=== PATIENT | female | born 1930 | race Caucasian/White ===

== ENCOUNTER 2017-02-18 08:55 | Outpatient (CLI) | payer MEDICARE ==
[2017-02-18 13:42] LABS: BASOPHILS % (AUTO) 0.7 %; EOSINOPHILS # (AUTO) 0.2 10^3/uL (0.0-0.7); EOSINOPHILS % (AUTO) 3.3 %; HGB - HEMOGLOBIN 12.7 g/dL (12.0-16.0); LYMPHOCYTES # (AUTO) 1.4 10^3/uL (1.5-3.5); LYMPHOCYTES % (AUTO) 22.3 %; MEAN CORPUSCULAR HEMOGLOBIN 26.9 pg (27.0-31.0); MEAN CORPUSCULAR HGB CONC 32.5 g/dL (32.0-36.0); MEAN CORPUSCULAR VOLUME 82.6 fL (81.0-99.0); MEAN PLATELET VOLUME 10.3 fL (7.9-10.8); MONOCYTES # (AUTO) 0.5 10^3/uL (0.0-1.0); MONOCYTES % (AUTO) 8.8 %; NEUTROPHILS % (AUTO) 64.9 %; RED BLOOD COUNT 4.73 10^6/uL (4.20-5.40); RED CELL DISTRIBUTION WIDTH 15.9 % (12.0-15.0); UNCORRECTED WHITE BLOOD COUNT 6.1 x10^3/uL; WHITE BLOOD COUNT 6.1 x10^3/uL (4.8-10.8)
[2017-02-18 14:14] LABS: ALBUMIN/GLOBULIN RATIO 1.2 (1.0-2.2); BILIRUBIN,TOTAL 0.4 mg/dL (0.2-1.0); BUN - BLOOD UREA NITROGEN 14 mg/dL (6-20); CALCIUM 8.7 mg/dL (8.5-10.3); CARBON DIOXIDE - CO2 28 mmol/L (21-32); CHLORIDE 104 mmol/L (101-111); CHOL/HDL RATIO 2.2 (<4.4); CHOLESTEROL 152 mg/dL; CREATININE 0.6 mg/dL (0.4-1.0); GFR - MDRD 95 (>89); GLUCOSE 98 mg/dL (70-100); HDL CHOLESTEROL 70 mg/dL; POTASSIUM 3.9 mmol/L (3.5-5.0); SODIUM 137 mmol/L (135-145); TOTAL PROTEIN 6.4 g/dL (6.7-8.2); TRIGLYCERIDES 66 mg/dL; VLDL CHOLESTEROL 13 mg/dL
== END 2017-02-18 08:56 | disposition home or self-care (01) ==
LOC: LAB.WCP 08:55
PROVIDERS: ATTEND Physician Assistant Medical
DX: E78.5 Hyperlipidemia, unspecified (principal); M16.11 Unilateral primary osteoarthritis, right hip
CPT/HCPCS: 36415; 80053; 80061; 85025

== ENCOUNTER 2017-03-22 08:37 | Outpatient (CLI) | payer MEDICARE ==
[2017-03-22 12:49] LABS: ALBUMIN/GLOBULIN RATIO 1.1 (1.0-2.2); BILIRUBIN,TOTAL 0.4 mg/dL (0.2-1.0); CALCIUM 8.8 mg/dL (8.5-10.3); CREATININE 0.7 mg/dL (0.4-1.0); POTASSIUM 3.9 mmol/L (3.5-5.0); TOTAL PROTEIN 6.6 g/dL (6.7-8.2)
== END 2017-03-22 08:38 | disposition home or self-care (01) ==
LOC: LAB.WCP 08:37
PROVIDERS: ATTEND Physician Assistant Medical
DX: R74.8 Abnormal levels of other serum enzymes (principal)
CPT/HCPCS: 36415; 80053

== ENCOUNTER 2018-03-29 14:21 | Outpatient (CLI) | payer MEDICARE, MEDICAID ==
[2018-03-29 19:30] LABS: ALBUMIN 3.1 g/dL (3.2-5.5); ALBUMIN/GLOBULIN RATIO 1.1 (1.0-2.2); ALKALINE PHOSPHATASE 99 IU/L (42-121); ALT ALANINE AMINOTRANSFERASE 16 IU/L (10-60); AST ASPARTATE AMINOTRANSFERASE 19 IU/L (10-42); BILIRUBIN,TOTAL 0.4 mg/dL (0.2-1.0); BUN - BLOOD UREA NITROGEN 13 mg/dL (6-20); CALCIUM 8.5 mg/dL (8.5-10.3); CARBON DIOXIDE - CO2 28 mmol/L (21-32); CHLORIDE 101 mmol/L (101-111); CHOL/HDL RATIO 2.4 (<4.4); CHOLESTEROL 127 mg/dL; CREATININE 0.6 mg/dL (0.4-1.0); GFR - MDRD 94 (>89); GLUCOSE 120 mg/dL (70-100); HDL CHOLESTEROL 54 mg/dL; LDL CHOLESTEROL,CALCULATED 63 mg/dL; LDL/HDL RATIO 1.2 (<4.4); SODIUM 136 mmol/L (135-145); VLDL CHOLESTEROL 10 mg/dL
== END 2018-03-29 14:22 ==
LOC: LAB.WCP 14:21
PROVIDERS: ATTEND Physician Assistant Medical
DX: E78.5 Hyperlipidemia, unspecified (principal)
CPT/HCPCS: 36415; 80053; 80061; 83721

== ENCOUNTER 2019-02-14 14:20 | Outpatient (CLI) | payer MEDICARE, MEDICAID ==
--- NOTE | 2019-02-14 15:51 | XRAY Report ---
Reason: ELBOW JOINT PAIN,RIGHT Procedure Date: 02/14/2019 Accession Number: [id number] / [id number] Procedure: WCP - Elbow 3 View RT CPT Code: FULL RESULT: EXAM: RIGHT ELBOW RADIOGRAPHY EXAM DATE: 02/14/2019 02:39 PM. CLINICAL HISTORY: Elbow joint pain, right. COMPARISON: None. TECHNIQUE: 3 views. FINDINGS: Bones: Normal. No fractures or bone lesions. Joints: Normal. No effusion. No subluxation. Soft Tissues: Normal. No soft tissue swelling. IMPRESSION: Normal elbow radiography. RADIA
== END 2019-02-14 14:21 | disposition home or self-care (01) ==
LOC: DI.WCP 14:20
PROVIDERS: ATTEND Physician Assistant Medical
DX: M25.521 Pain in right elbow (principal)

== ENCOUNTER 2019-02-14 14:21 | Outpatient (CLI) | payer MEDICARE, MEDICAID ==
--- NOTE | 2019-02-14 15:52 | XRAY Report ---
Reason: ANKLE PAIN,RIGHT Procedure Date: 02/14/2019 Accession Number: [id number] / [id number] Procedure: WCP - Ankle 3 View RT CPT Code: FULL RESULT: EXAM: RIGHT ANKLE RADIOGRAPHY. EXAM DATE: 02/14/2019 02:39 PM. CLINICAL HISTORY: Ankle pain, right. COMPARISON: None. TECHNIQUE: 3 views. FINDINGS: Bones: Mild inferior calcaneal spurring. Minimal posterior calcaneal spurring. No fractures or bone lesions. Joints: Normal. No effusion. No subluxations. The ankle mortise is normally aligned. Soft Tissues: Mild amount of vascular calcifications. Soft tissue swelling of the ankle is noted. IMPRESSION: No fracture or dislocation. RADIA
== END 2019-02-14 14:22 | disposition home or self-care (01) ==
LOC: DI.WCP 14:21
PROVIDERS: ATTEND Physician Assistant Medical
DX: M25.571 Pain in right ankle and joints of right foot (principal); M25.521 Pain in right elbow

== ENCOUNTER 2019-10-07 11:39 | Outpatient (CLI) | payer MEDICARE, MEDICAID | END 2019-10-07 11:40 | disposition critical access hospital (66) | LOC: EMS 11:39 | PROVIDERS: ATTEND Surgery | DX: R06.00 Dyspnea, unspecified (principal); R05 Cough; R56.9 Unspecified convulsions | CPT/HCPCS: A0425; A0427 ==

== ENCOUNTER 2019-10-07 11:54 | Inpatient (IN) | payer MEDICARE, MEDICAID ==
[2019-10-07] MEDS ORDERED: AZITHROMYCIN INJ 500 MG in SODIUM CHLORIDE 0.9% 250 ML IV STA (12:42)
[2019-10-07] MEDS ORDERED: cefTRIAXone 2 GM in SODIUM CHLORIDE 0.9% MINIBAG 100 ML IV STA (12:42)
--- NOTE | 2019-10-07 12:43 | ED Physician Documentation ---
PD HPI DYSPNEA - Stated complaint Stated Complaint: COUGH/ FEVER - Chief complaint Chief Complaint: Resp - History obtained from History obtained from: Patient - History of Present Illness Timing - onset: Today (This is an 88-year-old woman presents from assisted living with reported cough and fever and hypoxemia today. Had a temperature of 100.8 and pulse oximetry of 86%. She is confused so most of the history is from the transfer form. Patient has no complaints and does not really know why she is here.) Review of Systems Unable to obtain: Confused PD PAST MEDICAL HISTORY - Past Medical History Past Medical History: Yes Cardiovascular: High cholesterol - Past Surgical History Past Surgical History: No - Present Medications Home Medications: Ambulatory Orders Medication Instructions Recorded Confirmed Aspirin 81 mg PO 10/07/19 Fluticasone/Salmeterol [Advair 1 inh 10/07/19 250-50 Diskus] Lovastatin 40 mg PO 10/07/19 Nitrofurantoin Macrocrystal 100 mg PO BID 10/07/19 10/07/19 [Nitrofurantoin] - Allergies Allergies/Adverse Reactions: Allergies Allergy/AdvReac Type Severity Reaction Status Date / Time No Known Drug Allergies Allergy Verified 10/07/19 12:20 - Social History Does the pt smoke?: No Smoking Status: Never smoker PD ED PE NORMAL - Vitals Vital signs reviewed: Yes - General General: Other (Alert and oriented to person, not place time or events.) - HEENT HEENT: PERRL, EOMI - Neck Neck: Supple, no meningeal sign, No bony TTP - Cardiac Cardiac: RRR, No murmur - Respiratory Respiratory: No respiratory distress, Other (Rhonchorous at both bases, left worse than right) - Abdomen Abdomen: Non tender - Back Back: No CVA TTP, No spinal TTP - Derm Derm: Normal color, Warm and dry - Extremities Extremities: No edema, No calf tenderness / cord - Neuro Neuro: No motor deficit, No sensory deficit Eye Opening: Spontaneous Motor: Obeys Commands Verbal: Confused GCS Score: 14 Results - Vitals Vitals: Vital Signs - 24 hr 10/07/19 10/07/19 12:24 13:11 Temperature 37.4 C 37.4 C Heart Rate 102 H 75 Respiratory 18 24 Rate Blood Pressure 102/59 L 101/56 L O2 Saturation 94 Oxygen O2 Source Room air - Labs Labs: Laboratory Tests 10/07/19 10/07/19 10/07/19 13:00 13:00 13:00 WBC 20.9 H RBC 4.06 L Hgb 8.7 L Hct 29.7 L MCV 73.2 L MCH 21.4 L MCHC 29.3 L RDW 19.7 H Plt Count 240 MPV 10.8 Neut # (Auto) Not Reportable Lymph # (Auto) Not Reportable Alfalfa # (Auto) Not Reportable Eos # (Auto) Not Reportable Baso # (Auto) Not Reportable Absolute Nucleated RBC Not Reportable Total Counted 100 Band Neuts % (Manual) 5 Abnorm Lymph % (Manual) 0 Nucleated RBC % Not Reportable Neutrophils # (Manual) 18.2 H Lymphocytes # (Manual) 0.6 L Monocytes # (Manual) 1.9 H Eosinophils # (Manual) 0.2 Basophils # (Manual) 0.0 Differential Comment MANUAL DIFFERENTIAL WBC Morphology NORMAL APPEARANCE Platelet Estimate NORMAL (130-450,000) Platelet Morphology NORMAL APPEARANCE RBC Morph Micro Appear 1+ ACANTHOCYTES Sodium 134 L Potassium 3.2 L Chloride 99 L Carbon Dioxide 26 Anion Gap 9.0 BUN 14 Creatinine 0.6 Estimated GFR (MDRD) 94 Glucose 121 H Lactic Acid 0.9 Calcium 8.1 L Total Bilirubin 0.6 AST 17 ALT 12 Alkaline Phosphatase 96 Total Protein 6.1 L Albumin 2.9 L Globulin 3.2 Albumin/Globulin Ratio 0.9 L Lipase 24 Influenza A (Rapid) Influenza B (Rapid) 10/07/19 13:33 WBC RBC Hgb Hct MCV MCH MCHC RDW Plt Count MPV Neut # (Auto) Lymph # (Auto) Alfalfa # (Auto) Eos # (Auto) Baso # (Auto) Absolute Nucleated RBC Total Counted Band Neuts % (Manual) Abnorm Lymph % (Manual) Nucleated RBC % Neutrophils # (Manual) Lymphocytes # (Manual) Monocytes # (Manual) Eosinophils # (Manual) Basophils # (Manual) Differential Comment WBC Morphology Platelet Estimate Platelet Morphology RBC Morph Micro Appear Sodium Potassium Chloride Carbon Dioxide Anion Gap BUN Creatinine Estimated GFR (MDRD) Glucose Lactic Acid Calcium Total Bilirubin AST ALT Alkaline Phosphatase Total Protein Albumin Globulin Albumin/Globulin Ratio Lipase Influenza A (Rapid) Negative Influenza B (Rapid) Negative PD MEDICAL DECISION MAKING - ED course ED course: 88-year-old woman presents confused with pneumonia. She has right upper lobe infiltrate. She was administered Rocephin and Zithromax after blood cultures. Has a white count of 20 and is modestly anemic. She does not fit current guidelines for coronavirus testing per CDC and [facility] guidelines. Spoke with Dr. Singleton for admission at 2:04 PM. She did develop some lower blood pressures here of 90/60 or so for which she received 2 L of LR. Lactate was reassuring. Departure - Departure Disposition: [facility] DC/Xfer Clinical Impression: Pneumonia Qualifiers: Pneumonia type: due to unspecified organism Laterality: right Lung location: upper lobe of lung Qualified Code(s): J18.9 - Pneumonia, unspecified organism Condition: Serious
[2019-10-07 13:08] LABS: BASOPHILS % (AUTO) 0.5 %; HGB - HEMOGLOBIN 8.7 g/dL (12.0-16.0); LYMPHOCYTES % (AUTO) 7.1 %; MEAN CORPUSCULAR HEMOGLOBIN 21.4 pg (27.0-31.0); MEAN CORPUSCULAR HGB CONC 29.3 g/dL (32.0-36.0); MEAN CORPUSCULAR VOLUME 73.2 fL (81.0-99.0); MEAN PLATELET VOLUME 10.8 fL (7.9-10.8); MONOCYTES % (AUTO) 5.2 %; NEUTROPHILS % (AUTO) 86.2 %; PLT - PLATELET COUNT 240 10^3/uL (130-450); RED BLOOD COUNT 4.06 10^6/uL (4.20-5.40); RED CELL DISTRIBUTION WIDTH 19.7 % (12.0-15.0); WHITE BLOOD COUNT 20.9 x10^3/uL (4.8-10.8)
[2019-10-07 13:19] LABS: ALBUMIN 2.9 g/dL (3.2-5.5); ALBUMIN/GLOBULIN RATIO 0.9 (1.0-2.2); BILIRUBIN,TOTAL 0.6 mg/dL (0.2-1.0); CALCIUM 8.1 mg/dL (8.5-10.3); CREATININE 0.6 mg/dL (0.4-1.0); TOTAL PROTEIN 6.1 g/dL (6.7-8.2)
[2019-10-07 13:26] LABS: ABNORMAL LYMPHS % (MANUAL) 0 %
--- NOTE | 2019-10-07 13:31 | XRAY Report ---
Reason: cough fever Procedure Date: 10/07/2019 Accession Number: [id number] / [id number] Procedure: XR - Chest 1 View X-Ray CPT Code: 55545 Final Report FULL RESULT: EXAM: CHEST RADIOGRAPHY EXAM DATE: 10/07/2019 12:53 PM. CLINICAL HISTORY: Cough, fever. COMPARISON: None. TECHNIQUE: 1 view. FINDINGS: Lungs/Pleura: Patchy opacity is demonstrated in the right upper lung. Mild diffuse interstitial prominence is present. No pleural effusion or pneumothorax. Mediastinum: Cardiac silhouette is mildly enlarged. Atherosclerotic calcification of the aortic arch present. There appears to be ovoid retrocardiac density, which may represent a hiatal hernia. Other: There is apex right curvature of the thoracic spine with multilevel degenerative change.. IMPRESSION: 1. Patchy right upper lung opacity is concerning for pneumonia. Radiographic follow-up is recommended in 6-8 weeks to ensure resolution. 2. Mild diffuse interstitial prominence could represent sequela of senescent change. No significant pulmonary vascular engorgement to suggest pulmonary edema. RADIA
[2019-10-07] MEDS ORDERED: LACTATED RINGERS 2,109.21 ML IV STA (13:38)
[2019-10-07 13:47] LABS: BAND NEUTROPHILS % (MANUAL) 5 %; EOSINOPHILS # (MANUAL) 0.2 10^3/uL (0-0.7); LYMPHOCYTES # (MANUAL) 0.6 10^3/uL (1.5-3.5); LYMPHOCYTES % (MANUAL) 3 %; MONOCYTES # (MANUAL) 1.9 10^3/uL (0.0-1.0)
[2019-10-07 13:49] LABS: DIFFERENTIAL COMMENT MANUAL DIFFERENTIAL; PLATELET ESTIMATE, MANUAL NORMAL (130-450,000) (NORMAL); PLATELET MORPHOLOGY NORMAL APPEARANCE (NORMAL)
[2019-10-07] MEDS ORDERED: SODIUM CHLORIDE FLUSH 0.9% 10 ML SYRINGE IVP PRN (14:09)
[2019-10-07] MEDS: SODIUM CHLORIDE FLUSH 0.9% 10 ML SYRINGE IVP SCH (16:05)
--- NOTE | 2019-10-07 16:05 | PHARMACY PROGRESS NOTE ---
- Best Possible Medication History Admit Date and Time: 10/07/19 1409 Processed by: Pharmacy Medication History completed: Yes Patient Interview: Pt unable to participate Secondary Source(s): Pharmacy records, Insurance records As the person ultimately responsible for medication therapy, providers are able to order a medication from an existing home medication list in [facility] via the "Reconcile Routine" prior to Confirmation of that medication by instructional support services director. Such practice is discouraged except when the physician, in their clinical judgment, deems that a medical need exists for a medication without regard to previous use.
[2019-10-07 16:15] LABS: BILIRUBIN,URINE NEGATIVE (NEGATIVE); GLUCOSE, URINE (UA) NEGATIVE (NEGATIVE); KETONES,URINE (UA) NEGATIVE (NEGATIVE); LEUKOCYTE ESTERASE, URINE NEGATIVE (NEGATIVE); NITRITE,URINE NEGATIVE (NEGATIVE); OCCULT BLOOD,URINE NEGATIVE (NEGATIVE); PH,URINE 6.5 PH (5.0-7.5); PROTEIN,URINE NEGATIVE (NEGATIVE); UROBILINOGEN,URINE 1 (NORMAL) E.U./dL (NORMAL)
[2019-10-07 16:16] LABS: CLARITY,URINE CLEAR (CLEAR)
--- NOTE | 2019-10-07 16:51 | HISTORY & PHYSICAL EXAMINATION ---
Chief Complaint - Chief Complaint Chief Complaint: cough, fever, weakness History of Present Illness - Admitted From Admitted From:: ED - History Obtained From Records Reviewed: yes History obtained from: chart review, daughter Exam Limitations: baseline dementia - History of Present Illness HPI Comment/Other: Mouna Bella is an elderly 88-year old white female with a past medical history of dementia, hearing loss, urinary incontinence, hypertension, hyperlipidemia, carotid stenosis, osteoarthritis, gait ataxia, recurrent UTIs, & COPD. The patient was brought in via EMS from [facility] with a progressive productive cough, shortness of breath, and fever which began at least 24-hours ago. EMS noted that patient was hypoxic with a room air oxygen saturation of 86%, temp max reported at 100.8 F and a productive cough. Upon arrival to the ED, labs showed an elevated WBC count of 20.9, H/H 8.7/29.7, MCV 73.2, sodium 134, potassium 3.2, glucose 121, without any other abnormalities. A urinalysis per straight catheter is not indicative if a current UTI. Vital signs were blood pressure 89/57, heart rate 92, temp 99.1 F, respiratory rate 24, weaned to room air at 94%. Upon my exam, the patient appears to have good profusion, speaking in few word sentences, confused, speaking out of context, admits to a productive cough with phlegm. Her daughter, Sonya is at the bedside and states that she sees her mother each week at [facility] and notes that last week she was her normal self. Sonya has not been aware of any recent falls at [facility], and states that her confusion is only a little worse than her baseline dementia. Imaging confirmed a right lobe pneumonia and she has been admitted for inpatient care with at least 3 days of IV antibiotic therapy and symptom management. I encouraged Sonya to consider a Palliative care consult in the next few days as her pneumonia may be a progression of her underlying dementia. Sonya confirms her mothers most recent POLST stating she is a DNR/DNI. History - Past Medical History Cardiovascular: reports: Hypertension, High cholesterol Respiratory: reports: COPD, Emphysema Neuro: reports: Alzhiemer's, Dementia, Peripheral neuropathy, Tremors Endocrine/Autoimmune: reports: None GI: reports: GERD RN CLINICAL DOCUMENTATION: reports: None : reports: Incontinence, Chronic bladder infection, Renal insuffiency, Nocturia HEENT: reports: Chronic vision loss, Chronic sinusitis, Chronic hearing loss Psych: reports: Depression Musculoskeletal: reports: Osteoarthritis, Chronic back pain Derm: reports: None MRSA Hx?: No - Family & Social History Family History: Mother: , Father: Family History Comment/Other: Mother of natural causes in her 90's, father of a probable heart attack. Living arrangement: [facility] ([facility], [facility]) Social History Notes: in 1991, admits to smoking from age [age], denies alcohol or illicit drug use. Wishes to be a DNR. - Substance History Use: Uses substance without health or social issues: NONE Abuse: Recurrent use of substance despite neg consequences: NONE Dependence: Experiences withdrawal or developed tolerances: NONE - POLST Patient has POLST: No POLST Status: DNR Meds/Allgy - Home Medications Home Medications: Ambulatory Orders Medication Instructions Recorded Confirmed Aspirin [Aspirin EC] 81 mg PO DAILY 10/07/19 10/07/19 Fluticasone/Salmeterol [Advair 1 inh INH BID 10/07/19 10/07/19 250-50 Diskus] Lovastatin 40 mg PO QPM 10/07/19 10/07/19 Nitrofurantoin Macrocrystal 100 mg PO BID 10/07/19 10/07/19 [Nitrofurantoin] - Allergies Allergies/Adverse Reactions: Allergies Allergy/AdvReac Type Severity Reaction Status Date / Time No Known Drug Allergies Allergy Verified 10/07/19 12:20 Review of Systems - Constitutional Constitutional: reports: Fatigue, Fever, Chills, Weakness, Poor appetite - Eyes Eyes: reports: Vision loss, Corrective lenses - Ears, Nose & Throat Ears, Nose & Throat: reports: Hearing loss, Postnasal drainage, Sore throat, Hoarseness - Cardiovascular Cariovascular: reports: Decr. exercise tolerance - Respiratory Respiratory: reports: Cough, Sputum production, SOB with exertion - Gastrointestinal Gastrointestinal: reports: Diarrhea, Change in bowel habits, Nausea, Vomiting, Bile emesis, Reflux/heartburn, Bloating, Poor appetite - Genitourinary Genitourinary: reports: Dysuria, Urgency, Incontinence, Nocturia - Musculoskeletal Musculoskeletal: reports: Back pain, Muscle aches, Stiffness, Limited range of motion, Muscle weakness, Joint swelling - Integumentary Integumentary: reports: Dryness - Neurological Neurological: reports: General weakness, Dizziness, Memory problems, Pre- existing deficit, Abnormal gait, Incoordination - Psychiatric Psychiatric: reports: Depression - Hematologic/Lymphatic Hematologic/Lymphatic: reports: Recurrent infections - All Other Systems All Other Systems: reports: Reviewed and negative Prior Level of Functionality: Fall precautions, recurrent falls without major injuries. [facility] does not require the patient to use a walker or a cane, dementia, hearing loss & osteoarthritis contribute. Exam - Vital Signs Reviewed Vital Signs: Yes Vital Signs: Vital Signs x48h Temp Pulse Pulse Resp BP BP Pulse Ox 10/07/19 15:53 36.5 C 97 16 112/69 94 10/07/19 14:55 36.6 C 96 17 113/70 96 10/07/19 14:05 96/59 L 10/07/19 13:30 99.1 C H 92 89/57 L 10/07/19 13:11 37.4 C 75 24 101/56 L 10/07/19 12:24 37.4 C 102 H 18 102/59 L 94 - Physical Exam General Appearance: positive: No acute distress, Alert Eyes Bilateral: positive: PERRL, No lid inflammation ENT: positive: Pharyngeal erythema, Dry mucous membranes Neck: positive: No JVD, Trachea midline, Lymphadenopathy (R), Lymphadenopathy (L), Stiff neck Respiratory: positive: Chest non-tender, No respiratory distress, Other (no wheezing, scattered crackles, diminished bilaterally) Cardiovascular: positive: Regular rate & rhythm, No gallop, Systolic murmur, Decreased pulse(s) Peripheral Pulses: positive: 1+ Abdomen: positive: Non-tender, Nml bowel sounds Back: positive: Nml inspection Skin: positive: Color nml, No rash, Warm, Dry Extremities: positive: Non-tender, Full ROM, Nml appearance, No pedal edema, Joint swelling Neurologic/Psychiatric: positive: Mood/affect nml, Disoriented to person, Disoriented to place, Disoriented to time, Weakness, Sensory loss, Slurred/abnml speech (few word sentences, progressive baseline dementia) Reflexes: Bicep (R): 3+, Bicep (L): 3+ Conclusion/Plan - Problem List (1) Pneumonia Conclusion/Plan: -Patient was noted to have a temp max of 100.8 F, hypoxia with a room air oxygen saturation of 86%, productive cough, shortness of breath, and lethargy -Chest x-ray shows patchy right upper lung opacity is concerning for pneumonia. Radiographic follow-up is recommended in 6-8 weeks to ensure resolution -Continuing Azithromycin, which was started in the ED -Starting Zosyn IV based on recent antibiotic use ~ 09/26 for UTI -Attempt to obtain a sputum sample for lab testing -Symptom management with expectorants, as needed albuterol, and respiratory cares Acute respiratory failure with hypoxia -EMS noted patient to be only 86% on room air upon arrival to [facility] -Required 2L nasal cannula, now on room air -No oxygen needs baseline, no DEBRA which is known -Likely due to pneumonia -Monitor respiratory needs, prescribe nebulizers, expectorants, consider IV steroids if indicated E. coli UTI -Noted when reviewing outside records -Macrobid was given for 14 days -Now on hold -Patient has baseline urinary incontinence, occasionally incontinent of stool -New UA has been obtained, appears normal -Treating acute pneumonia with Zosyn (on sensitivity list from outpatient testing) -Offer PURE-WICK for comfort, monitor for retention Dementia -Progressive, with falls, incontinence, lack of full sentence speech, ataxia, and now with pneumonia concerning for possible aspiration -DaughterSonya is very supportive, and sees her mother at least weekly -Consider Palliative care consult, swallow evaluation to rule out aspiration as the cause of PNA -Fall precautions, bed/chair alarms, consistent nursing staff to avoid further confusion Falls -ORIF of hip per outside chart, unknown if due to fall -Recent falls without injury -No recent head injuries -Now in a closely monitored home environment, [facility] -Fall precautions, PT/OT evaluation if appropriate prior to discharge Urinary incontinence -Progressive, likely related to dementia -Consequently, recurrent UTIs, lower quality of life -Offering PURE-WICK while in the hospital HTN (hypertension) -Noted in outside chart, not currently on antihypertensive medication -Monitor VS HLD (hyperlipidemia) -Patient takes a statin daily per PCP -Continue in a few days after acute infection improves Carotid stenosis -Listed in history -Fall precautions, change positions slowly to prevent syncope -No carotid bruie noted on exam COPD (chronic obstructive pulmonary disease) -Tobacco dependence from age [age] -Prescribed Advair at home, now on budesonide & formoterol INH per RT with albuterol as needed -TID incentive spirometry, expectorants scheduled, treating pneumonia Osteoarthritis -Causes ataxia, joint problems, PCP office visits -Fall precautions, recommend D3 supplement Gait disturbance -Recurrent falls, without major injury -Now in memory care for her dementia -Consider PT/OT evaluation prior to discharge in the next few days Hearing impairment -Noted in outside chart, also with cerumen impaction Qualifiers: - Lab Results Lab results reviewed: Yes Fish Bones: 10/07/19 13:00 10/07/19 13:00 - Diagnostic Imaging Results Diagnostic Imaging Results: positive: Final report reviewed Diagnostic Imaging Results Comments: EXAM: CHEST RADIOGRAPHY 10/07/2019 12:53 PM IMPRESSION: 1. Patchy right upper lung opacity is concerning for pneumonia. Radiographic follow-up is recommended in 6-8 weeks to ensure resolution. 2. Mild diffuse interstitial prominence could represent sequela of senescent change. No significant pulmonary vascular engorgement to suggest pulmonary edema. Core Measures - Anticipated LOS I expect patient to be DC'd or transferred within 96 hours.: Yes - DVT/VTE - Prophylaxis VTE/DVT Device ordered at admit?: Yes VTE/DVT Prophylaxis med ordered at admit?: Yes - Stroke - Rehab Assessment Rehab services assessment to be ordered?: Yes - AMI - Statin at Admit Aspirin Prescribed on Admit: Yes
[2019-10-07] MEDS: PIPERACILLIN/TAZOBACTAM 3.375 GM in SODIUM CHLORIDE 0.9% MINIBAG 100 ML IV SCH ×2 (17:43→22:00)
[2019-10-07] MEDS ORDERED: ACETAMINOPHEN 325 MG TABLET PO PRN (18:31)
[2019-10-07] MEDS: ALBUTEROL NEB 2.5 MG/3 ML INH PRN (20:17)
[2019-10-07] MEDS: FORMOTEROL FUMARATE NEB 20 MCG/2 ML INH SCH (20:17)
[2019-10-07] MEDS: BUDESONIDE 0.5 MG/2 ML NEB INH SCH (20:17)
[2019-10-07] MEDS: guaiFENesin 600 MG TABLET PO SCH (21:02)
[2019-10-08] MEDS: SODIUM CHLORIDE FLUSH 0.9% 10 ML SYRINGE IVP SCH ×2 (00:13→04:41)
[2019-10-08] MEDS: PIPERACILLIN/TAZOBACTAM 3.375 GM in SODIUM CHLORIDE 0.9% MINIBAG 100 ML IV SCH (04:41)
[2019-10-08 05:33] LABS: BASOPHILS % (AUTO) 0.4 %; EOSINOPHILS # (AUTO) 0.2 10^3/uL (0.0-0.7); EOSINOPHILS % (AUTO) 1.6 %; HGB - HEMOGLOBIN 7.9 g/dL (12.0-16.0); LYMPHOCYTES # (AUTO) 1.6 10^3/uL (1.5-3.5); LYMPHOCYTES % (AUTO) 17.1 %; MEAN CORPUSCULAR HEMOGLOBIN 20.7 pg (27.0-31.0); MEAN CORPUSCULAR HGB CONC 28.6 g/dL (32.0-36.0); MEAN CORPUSCULAR VOLUME 72.4 fL (81.0-99.0); MONOCYTES # (AUTO) 0.7 10^3/uL (0.0-1.0); MONOCYTES % (AUTO) 7.6 %; NEUTROPHILS # (AUTO) 6.9 10^3/uL (1.5-6.6); NEUTROPHILS % (AUTO) 72.8 %; PLT - PLATELET COUNT 207 10^3/uL (130-450); RED BLOOD COUNT 3.81 10^6/uL (4.20-5.40); RED CELL DISTRIBUTION WIDTH 19.8 % (12.0-15.0); WHITE BLOOD COUNT 9.4 x10^3/uL (4.8-10.8)
[2019-10-08 05:48] LABS: ALBUMIN 2.7 g/dL (3.2-5.5); BILIRUBIN,TOTAL 0.5 mg/dL (0.2-1.0); CALCIUM 7.7 mg/dL (8.5-10.3); CREATININE 0.6 mg/dL (0.4-1.0); CRP - C-REACTIVE PROTEIN 9.7 mg/dL (0-1.0); MAGNESIUM 1.9 mg/dL (1.7-2.8); TOTAL PROTEIN 5.5 g/dL (6.7-8.2)
[2019-10-08] MEDS: BUDESONIDE 0.5 MG/2 ML NEB INH SCH (07:35)
[2019-10-08] MEDS: FORMOTEROL FUMARATE NEB 20 MCG/2 ML INH SCH (07:35)
[2019-10-08] MEDS: ALBUTEROL NEB 2.5 MG/3 ML INH PRN (07:35)
[2019-10-08] MEDS: guaiFENesin 600 MG TABLET PO SCH (08:25)
[2019-10-08] MEDS ORDERED: AZITHROMYCIN INJ 500 MG in SODIUM CHLORIDE 0.9% 250 ML IV SCH (09:00)
[2019-10-08] MEDS ORDERED: ASPIRIN EC 81 MG TABLET PO SCH (09:00)
--- NOTE | 2019-10-08 10:50 | Discharge Plan ---
"Discharge Plan for SNF / [facility] - Discharge Plan And Transition Orders Problem Reviewed?: Yes Disposition: 03 SNF DC/Xfer Condition: Good Allergies and Adverse Reactions: Allergies Allergy/AdvReac Type Severity Reaction Status Date / Time No Known Drug Allergies Allergy Verified 10/07/19 12:20 Health Concerns: Pneumonia Cough Recurrent UTI Dementia Falls Plan of Treatment: Continue to antibiotic at [facility] Continue using your jail inhalers Consider Palliative care consult if the patient continues to have recurrent infections, recurrent falls, or declining mental status Care Goals: Maintain enough independence to keep living at [facility] Prevent falls Prevent infections Prevent ED visits or hospital stays Assessment: The patient was admitted for pneumonia, with hypoxia, an elevated WBC count, lethargy, fevers, and productive cough with an expected length of stay for at least 2-nights. Since the patient responded so rapidly to IV antibiotics, she will have an early discharge back to [facility]. She requires no supplemental oxygen, eating well, back to her baseline activity, and given her dementia, she is bothered about being at the hospital. Her daughter, Sonya was given a medical update and agrees with this plan. - SNF / [facility] Transition Orders Admit to (Facility): [facility] Under the care of (Name): Perri Perry PA-C Discharge Diagnosis: Pneumonia-Present on admission, no evidence of aspiration, hypoxia resolved, no worsening cough, no fevers today, stable, continue oral antibiotics at [facility] E. coli UTI-UA is normal from 10/07/2019, stopped Macrobid, continue levofloxacin, stable Dementia-Chronic, pleasantly confused, stable Falls-Chronic, no major injuries, stable Urinary incontinence-Chronic, stable HTN (hypertension)-Chronic, stable HLD (hyperlipidemia)-Chronic, stable Carotid stenosis-Chronic, stable COPD (chronic obstructive pulmonary disease)-Chronic, stable Osteoarthritis-Chronic, stable Gait disturbance-Chronic, stable Hearing impairment-Chronic, stable Weight on admission and: Monthly Treatments & Other Orders: Take the Mucinex twice daily for the next week to thin out your sputum and for cough. Medication Orders: PLEASE REFER TO THE DISCHARGE MEDICATION LIST. - Medications New Prescriptions: guaiFENesin [Mucinex] 600 mg PO BID #60 tablet Levofloxacin [Levaquin] 500 mg PO DAILY #7 tablet - Diet Type: Geriatric Texture: Regular Liquids: Thin May have monthly special meal: Yes - Therapies | Activity Activity: Activity as Tolerated Assistance Devices: Wheelchair, Walker Follow Up: See PCP in one week, if able"
--- NOTE | 2019-10-08 11:29 | DISCHARGE SUMMARY ---
Discharge Summary Admit Date: 10/07/19 Discharge Date: 10/08/19 Discharging Provider: MELVA Eric Primary Care Provider: Perri Perry PA-C Code Status: Do Not Attempt Resuscitation Condition at Discharge: Good Discharge Disposition: SNF DC/Xfer Discharge Facility Name: [facility] - DIAGNOSES Admission Diagnoses: Pneumonia E. coli UTI Dementia Falls Urinary incontinence HTN (hypertension) HLD (hyperlipidemia) Carotid stenosis COPD (chronic obstructive pulmonary disease) Osteoarthritis Gait disturbance Hearing impairment Discharge Diagnoses with Status of Each Condition: Pneumonia-Present on admission, no evidence of aspiration, hypoxia resolved, no worsening cough, no fevers today, stable, continue oral antibiotics at [facility] E. coli UTI-UA is normal from 10/07/2019, stopped Macrobid, continue levofloxacin, stable Dementia-Chronic, pleasantly confused, stable Falls-Chronic, no major injuries, stable Urinary incontinence-Chronic, stable HTN (hypertension)-Chronic, stable HLD (hyperlipidemia)-Chronic, stable Carotid stenosis-Chronic, stable COPD (chronic obstructive pulmonary disease)-Chronic, stable Osteoarthritis-Chronic, stable Gait disturbance-Chronic, stable Hearing impairment-Chronic, stable - HPI History of Present Illness: Mouna Bella is an elderly 88-year old white female with a past medical history of dementia, hearing loss, urinary incontinence, hypertension, hyperlipidemia, carotid stenosis, osteoarthritis, gait ataxia, recurrent UTIs, & COPD. The patient was brought in via EMS from [facility] with a progressive productive cough, shortness of breath, and fever which began at leas t 24-hours ago. EMS noted that patient was hypoxic with a room air oxygen saturation of 86%, temp max reported at 100.8 F and a productive cough. Upon arrival to the ED, labs showed an elevated WBC count of 20.9, H/H 8.7/29.7, MCV 73.2, sodium 134, potassium 3.2, glucose 121, without any other abnormalities. A urinalysis per straight catheter is not indicative if a current UTI. Vital signs were blood pressure 89/57, heart rate 92, temp 99.1 F, respiratory rate 24, weaned to room air at 94%. Upon my exam, the patient appears to have good profusion, speaking in few word sentences, confused, speaking out of context, admits to a productive cough with phlegm. Her daughter, Sonya is at the bedsi de and states that she sees her mother each week at [facility] and notes that last week she was her normal self. Sonya has not been aware of any recent falls at [facility], and states that her confusion is only a little worse than her baseline dementia. Imaging confirmed a right lobe pneumonia and she has been admitted for inpatient care with at least 3 days of IV antibiotic therapy and symptom management. I encouraged Sonya to consider a Palliative care consult in the next few days as her pneumonia may be a progression of her underlying dementia. Sonya confirms her mothers most recent POLST stating she is a DNR/DNI. - HOSPITAL COURSE Hospital Course: The patient was admitted for pneumonia, with hypoxia, an elevated WBC count, le thargy, fevers, and productive cough with an expected length of stay for at least 2-nights. Since the patient responded so rapidly to IV antibiotics, she will have an early discharge back to [facility]. She requires no supplemental oxygen, eating well, back to her baseline activity, and given her dementia, she is bothered about being at the hospital. Her daughter, Sonya was given a medical update and agrees with this plan. - ALLERGIES Allergies/Adverse Reactions: Allergies Allergy/AdvReac Type Severity Reaction Status Date / Time No Known Drug Allergies Allergy Verified 10/07/19 12:20 - MEDICATIONS Home Medications: Ambulatory Orders Medication Instructions Recorded Confirmed Aspirin [Aspirin EC] 81 mg PO DAILY 10/07/19 10/07/19 Fluticasone/Salmeterol [Advair 1 inh INH BID 10/07/19 10/07/19 250-50 Diskus] Lovastatin 40 mg PO QPM 10/07/19 10/07/19 Levofloxacin [Levaquin] 500 mg PO DAILY #7 tablet 10/08/19 guaiFENesin [Mucinex] 600 mg PO BID #60 tablet 10/08/19 - PHYSICAL EXAM AT DISCHARGE General Appearance: positive: No acute distress, Alert Eyes Bilateral: positive: Normal inspection, PERRL ENT: positive: ENT inspection nml, Pharynx nml, No signs of dehydration Neck: positive: Thyroid nml, No JVD, Trachea midline Respiratory: positive: Chest non-tender, No respiratory distress, Other (diminished, bilaterally) Cardiovascular: positive: Regular rate & rhythm, No gallop, Systolic murmur Peripheral Pulses: positive: 2+ Abdomen: positive: Non-tender, Nml bowel sounds, Other (rounded, soft) Back: positive: Nml inspection Skin: positive: No rash, Warm, Dry Extremities: positive: Non-tender, Full ROM, Nml appearance, No pedal edema, Joint swelling Neurologic/Psychiatric: positive: CN's nml (2-12), Disoriented to place, Disoriented to time, Weakness, Sensory loss, Other (baseline dementia, pleasant) Reflexes: Bicep (R): 3+, Bicep (L): 3+ - LABS Result Diagrams: 10/08/19 05:21 10/08/19 05:21 - DIAGNOSTIC IMAGING Diagnostic Imaging Results: Final report reviewed Diagnostic Imaging Results Comments: EXAM: CHEST RADIOGRAPHY 10/07/2019 12:53 PM IMPRESSION: 1. Patchy right upper lung opacity is concerning for pneumonia. Radiographic follow-up is recommended in 6-8 weeks to ensure resolution. 2. Mild diffuse interstitial prominence could represent sequela of senescent change. No significant pulmonary vascular engorgement to suggest pulmonary edema. - FOLLOW UP Follow Up: Continue to antibiotic at [facility] Continue using [facility] inhalers Consider Palliative care consult if the patient continues to have recurrent infections, recurrent falls, or declining mental status (Information has been given to the patient's daughter, Sonya) See PCP within one week, if this is not too disruptive given the patient's dementia - TIME SPENT Time Spent in Discharge (Minutes): 55
[2019-10-08] MEDS ORDERED: levoFLOXacin 250 MG TABLET PO SCH (12:00)
[2019-10-08 17:38] VITALS: BP 115/69
--- NOTE | 2019-10-08 18:11 | ADVANCE CARE PLANNING NOTE ---
Advance Care Planning - Planning Encounter Date: 10/08/19 Time: 09:00 Purpose: Establish goals of care, present the idea of Palliative care, and confirm current end of life wishes. Parties in Attendance: The patient- Mouna Bella, her daughter-Sonya, and myself-MELVA Eric Decisional Capacity of the Patient: The patient has profound advanced dementia and cannot recall situations or things that occurred just 5-10 minutes ago. She is not considered to have capacity to make medical decisions. Her daughter, Snoya is speaking for her and is her designated POA. - Diagnosis for Encounter (1) Pneumonia Qualifiers: Summary: Continue to antibiotic at [facility], no swallowing evaluation was indicated during this stay. - Encounter Subjective/Patient's Story: Sonya, the patients daughter states that she sees her mother about once weekly and states that her mother is generally pleasantly confused. She will often comment when in a group setting, just look at all these old people! Have you ever seen such a thing? She states that she rarely has to fight with her mother about staying at [facility] and is quite content there. She states that she has not had any problems with swallowing her food, and no excessive falling while at [facility]. She does not think her quality of life is poor and believes she enjoys most days. She understands that her mothers dementia continues to progress, but there has not been any moments in which her mother does not recognize her. She believes things are going well in general. She states she may be interested in Palliative care in the near future and thanked me for the information. I have put this recommendation on the discharge summary for PCP to order in the near future. Objective/Medical Story: Mouna Bella is an elderly 88-year old white female with a past medical history of dementia, hearing loss, urinary incontinence, hypertension, hyperlipidemia, & COPD. The patient was brought in via EMS from [facility] with a progressive productive cough, shortness of breath, and fever which began at least 24-hours ago. EMS noted that patient was hypoxic with a room air oxygen saturation of 86%, temp max reported at 100.8 F and a productive cough. Upon arrival to the ED, labs showed an elevated WBC count of 20.9, H/H 8.7/29.7, MCV 73.2, sodium 134, potassium 3.2, glucose 121, without any other abnormalities. Vital signs were blood pressure 89/57, heart rate 92, temp 99.1 F, respiratory rate 24, weaned to room air at 94%. Upon my exam, the patient appears to have good profusion, speaking in few word sentences, confused, speaking out of context, admits to a productive cough with phlegm. Her daughter, Sonya is at the bedside and states that she sees her mother each week at [facility] and notes that last week she was her normal self. Sonya has not been aware of any recent falls at [facility], and states that her confusion is only a little worse than her baseline dementia. Imaging confirmed a right lobe pneumonia and she has been admitted for inpatient care with at least 3 days of IV antibiotic therapy and symptom management. I encouraged Sonya to consider a Palliative care consult in the next few days as her pneumonia may be a progression of her underlying dementia. Sonya confirms her mothers most recent POLST stating she is a DNR/DNI. Goals of Care: Maintain enough independence to keep living at [facility] Prevent falls Prevent infections Prevent ED visits or hospital stays Plan: Continue to antibiotic at [facility] Continue using your [employer] inhalers Consider Palliative care consult if the patient continues to have recurrent infections, recurrent falls, or declining mental status Code Status: Do Not Attempt Resuscitation Time spent on advance care plannin
== END 2019-10-08 18:19 | disposition home or self-care (01) | DRG 194 ==
LOC: EDUNIT# → ED 11:54 → MS2 14:09
PROVIDERS: ADMIT Nurse Practitioner; ATTEND Nurse Practitioner
DX: J18.9 Pneumonia, unspecified organism (principal); E78.00 Pure hypercholesterolemia, unspecified; N39.0 Urinary tract infection, site not specified; J43.9 Emphysema, unspecified; R09.02 Hypoxemia; B96.20 Unspecified Escherichia coli [E. coli] as the cause of diseases classified elsewhere; G30.9 Alzheimer's disease, unspecified; F02.80 Dementia in other diseases classified elsewhere, unspecified severity, without behavioral disturbance, psychotic disturbance, mood disturbance, and anxiety; I65.29 Occlusion and stenosis of unspecified carotid artery; E78.5 Hyperlipidemia, unspecified; R26.9 Unspecified abnormalities of gait and mobility; M19.90 Unspecified osteoarthritis, unspecified site; R32 Unspecified urinary incontinence; R35.1 Nocturia; N28.9 Disorder of kidney and ureter, unspecified; H91.90 Unspecified hearing loss, unspecified ear; H54.7 Unspecified visual loss; G62.9 Polyneuropathy, unspecified; R25.1 Tremor, unspecified; J32.9 Chronic sinusitis, unspecified; G89.29 Other chronic pain; M54.9 Dorsalgia, unspecified; Z66 Do not resuscitate; Z87.891 Personal history of nicotine dependence; Z91.81 History of falling; Z79.82 Long term (current) use of aspirin; Z79.51 Long term (current) use of inhaled steroids
CPT/HCPCS: 36415; 71045; 80053; 81003; 83605; 83690; 83735; 85025; 86140; 86850; 86900; 86901; 87040; 87086; 87275; 87276; 94640; 96365; 99281; 99285; A9270; J7120; J7626; 81001